=== PATIENT | female | born 1985 | race Caucasian/White ===

== ENCOUNTER 2020-06-28 09:17 | Emergency (ER) | payer OTHER ==
[~2020-06-28] VITALS: Ht 162.6 cm; Wt 53.5 kg
[2020-06-28 09:26] VITALS: Ht 162.6 cm; Wt 53.5 kg
[2020-06-28 10:22] VITALS: BP 109/78
== END 2020-06-28 10:22 | disposition home or self-care (01) ==
LOC: ED 09:17
DX: N61.0 Mastitis without abscess (principal)